=== PATIENT | female | born 1985 | race Caucasian/White ===

== ENCOUNTER 2023-04-24 03:29 | Emergency (ER) | payer MEDICAID, SELFPAY ==
[2023-04-24 03:37] VITALS: BMI 20.3
[2023-04-24 03:41] VITALS: BP 147/114; PULSE 112; RESP 16; TEMP 37.2; O2SAT 95
--- NOTE | 2023-04-24 04:17 | CTR_ITS ---
PROCEDURE INFORMATION: Exam: CT Head Without Contrast Exam date and time: 04/24/2023 4:40 AM Age: 38 years old Clinical indication: Altered mental status/memory loss; Confusion or disorientation; Patient HX: Facial droop, PT states she had a previous stroke. Very agitated. Unable to remain still during scan; Additional info: AMS TECHNIQUE: Imaging protocol: Computed tomography of the head without contrast. Radiation optimization: All CT scans at this facility use at least one of these dose optimization techniques: automated exposure control; mA and/or kV adjustment per patient size (includes targeted exams where dose is matched to clinical indication); or iterative reconstruction. REPORTING DATA: Count of CT and Cardiac NM exams in prior 12 months: This patient has received 0 known CTs and 0 known cardiac nuclear medicine studies in the 12 months prior to the current study. COMPARISON: No relevant prior studies available. RADIATION DOSE METRICS: Total DLP (mGy-cm): 1143.6 FINDINGS: Brain: No focal hemorrhage or midline shift is identified. Cerebral ventricles: No ventriculomegaly or evidence of acute hydrocephalus. Paranasal sinuses: Minimal left lower maxillary sinus mucosal thickening. Mastoid air cells: Visualized mastoid air cells are well aerated. Bones/joints: No displaced skull fracture is noted. Soft tissues: Unremarkable. CT/CT head wo con* [id number] IMPRESSION: No acute intracranial abnormality.
--- NOTE | 2023-04-24 04:20 | ED_ITS ---
HPI - Anxiety General: Chief Complaint: Anxiety Stated Complaint: weakness Source: patient History of Present Illness: 38-year-old female who is unknown to our service. She states that she has lived in [facility] for the last 21 years. She has been doing a lot of walking this morning she claims. She believes that sometime yesterday or the day before, she may have had a stroke . She states that the right side of her face does not feel quite right, that she is having trouble with swallowing, etc. she is difficult to follow on interview. She speaks about demons , evil people , witches possessing me , etc. she also states people that where the COVID masks are [facility]AMAN complaint: anxiety and other Onset (ago): day(s) Symptoms: other Severity: moderate Quality: constant Place: other History of similar episodes: Yes Provoking factors: other Relieving factors: other Exacerbating factors: other Associated symptoms: Reports confusion and weakness (of right face); Deny chest pain, chills, diaphoresis, fever(s), headache(s), palpitations or vomiting Review of Systems General: Reports: Other (she is and unreliable historian to some degree) Const: Denies: fever(s), chills or diaphoresis Card: Denies: chest pain or palpitations GI: Denies: vomiting Neuro: Reports: confusion; Denies: headache(s) Physical Exam Const: GENERAL APPEARANCE: cooperative, well kempt and well developed; not ill appearing and not frail appearing ORIENTATION/CONSCIOUSNESS: Yes awake, Yes oriented to person and Yes oriented to place; not oriented to time HENMT: COMMON NORMALS: normocephalic, atraumatic and Normal external nose present HEAD & SCALP: normocephalic and atraumatic FACE & SINUS: face not symmetric NOSE: Normal external nose present and Normal nares present Eye: COMMON NORMALS: Equal, round and reactive pupils present and EOMs intact bilaterally PUPIL: Yes Equal, round and reactive pupils present Neck/C-Spine: GENERAL: Yes trachea midline Chest: CHEST: Yes Symmetrical chest wall rise Resp: COMMON NORMALS: normal respiratory effort, No use of accessory muscles and clear to auscultation bilaterally AUSCULTATION: clear to auscultation bilaterally Cardio: COMMON NORMALS: regular rate and regular rhythm RATE: regular rate RHYTHM: regular rhythm GI: COMMON NORMALS: Normal to inspection, nondistended, normoactive bowel sounds present Extremity: COMMON NORMALS: no pedal edema Neuro: EVELYN COMA SCALE: document GCS findings Evelyn coma scale eye opening: Spontaneous Evelyn coma scale verbal response: Orientated [place] coma scale motor response: Obey commands Evelyn coma scale total score: 15 SENSORIUM/ORIENTATION: Yes oriented to person, Yes oriented to place and No oriented to time CRANIAL NERVES: Yes CN VII (facial) Laterality: right CN VII findings: facial droop GAIT: Yes Normal gait present MOTOR EXAM: Pronator motor function not present Psych: COMMON NORMALS: cooperative APPEARANCE: Yes well kempt ATTITUDE: Yes engaged ACTIVITY/MOTOR BEHAVIOR: Yes appropriate eye contact and Yes psychomotor agitation SPEECH: Yes rapid and Yes Pressured speech present MOOD & AFFECT: Yes elevated mood THOUGHT PROCESS: disorganized and Tangential thought process present THOUGHT CONTENT: No Suicidality present, No Homicidality present and Yes delusions ATTENTION/CONCENTRATION: Yes attention grossly intact and Yes concentration grossly intact MEMORY/COGNITION: Yes memory grossly intact and Yes cognition grossly intact INSIGHT: Limited insight present (Psych) JUDGEMENT: Fair judgement present (Psych) Skin: COMMON NORMALS: no rashes or lesions noted GENERAL SKIN EXAM: no rashes or lesions noted Course Vital Signs: Vital signs: Vital Signs Temperature 98.9 F 04/24/23 03:41 Pulse Rate 112 H 04/24/23 03:41 Respiratory Rate 16 04/24/23 03:41 Blood Pressure 147/114 04/24/23 03:41 Pulse Oximetry 95 04/24/23 03:41 Oxygen Delivery Me thod Room Air 04/24/23 03:41 MDM - Anxiety Medical Decision Making Patient appears floridly psychotic on exam. She is hypertensive. She does have a dense facial droop on the right side. There are no other neurological findings to suggest ischemia. 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 CT of the head is pending. Work-up for altered mental status otherwise. She is given IV Haldol and Ativan with good effect. Urine drug screen appears positive for amphetamines, which could be a source of psychosis, although I suspect there is baseline mental illness as well. Despite IV Haldol and Ativan, the patient was still up and about in the room. She has had 2 sandwiches, and water. She is speaking a bit more appropriately. A sober appearing adult came to see her. The patient wishes to leave. It was e xplained to her, that leaving before completion of her evaluation could result in an increased risk of worsening symptoms and/or . She understands this. She is more oriented at this point. She is not homicidal or suicidal she will be allowed to go AMA. Lab Data 04/24/23 04:19 Laboratory Results WBC 7.6 10^3/uL (4.0-10.0) 04/24/23 04:19 RBC 4.25 10^6/uL (4.1-5.3) 04/24/23 04:19 Hgb 11.6 g/dL (11.5-15.3) 04/24/23 04:19 Hct 36.5 % (37.0-47.0) L 04/24/23 04:19 MCV 85.9 fl (81-99) 04/24/23 04:19 MCH 27.3 pg (28.0-34.0) L 04/24/23 04:19 MCHC 31.8 g/dL (30.0-36.0) 04/24/23 04:19 RDW 14.5 % (12.1-15.1) 04/24/23 04:19 Plt Count 673 10^3/cmm (130-400) H 04/24/23 04:19 MPV 9.8 fL (7.4-10.4) 04/24/23 04:19 Neut % (Auto) 64.2 % 04/24/23 04:19 Lymph % (Auto) 23.8 % 04/24/23 04:19 [place] % (Auto) 10.1 % 04/24/23 04:19 Eos % (Auto) 1.3 % 04/24/23 04:19 Baso % (Auto) 0.5 % 04/24/23 04:19 Neut # (Auto) 4.85 10^3/uL (1.8-7.7) 04/24/23 04:19 Lymph # (Auto) 1.8 10^3/uL (0.8-4.8) 04/24/23 04:19 [place] # (Auto) 0.8 10^3/uL (0.2-0.9) 04/24/23 04:19 Eos # (Auto) 0.1 10^3/uL (0.0-0.8) 04/24/23 04:19 Baso # (Auto) 0.0 10^3/uL (0.0-0.1) 04/24/23 04:19 Nucleated RBC % (auto) 0 % 04/24/23 04:19 Nucleated RBCs # 0.0 /100WBC 04/24/23 04:19 HCG, Qual Negative (Negative) 04/24/23 04:19 Urine Color Yellow (Yellow) 04/24/23 04:27 Urine Appearance Clear (CLEAR) 04/24/23 04:27 Urine pH 6.5 (5-7) 04/24/23 04:27 Ur Specific [place] 1.020 (1.005-1.030) 04/24/23 04:27 Urine Protein Trace (Negative) 04/24/23 04:27 Urine Glucose (UA) Norm (Normal) 04/24/23 04:27 Urine Ketones 1+ (Negative) H 04/24/23 04:27 Urine Blood 2+ (Negative) H 04/24/23 04:27 Urine Nitrate Negative (Negative) 04/24/23 04:27 Urine Bilirubin 1+ (Negative) H 04/24/23 04:27 Urine Urobilinogen Norm mg/dL (Negative) 04/24/23 04:27 Ur Leukocyte Esterase 2+ (Negative) H 04/24/23 04:27 Urine RBC 5-10 /hpf (0-2) H 04/24/23 04:27 Urine WBC 25-40 /hpf (0-5) H 04/24/23 04:27 Ur Squamous Epith Cells 5-10 /hpf (0-5) H 04/24/23 04:27 Amorphous Sediment Not Reportable 04/24/23 04:27 Urine Bacteria 2+ /hpf (NONE) H 04/24/23 04:27 Urine Mucus 1+ /hpf 04/24/23 04:27 Urine Opiates Screen Negative ng/mL (Negative) 04/24/23 04:27 Ur Barbiturates Screen Negative ng/mL (Negative) 04/24/23 04:27 Ur Phencyclidine Scrn Negative ng/mL (Negative) 04/24/23 04:27 Ur Amphetamines Screen Positive ng/mL (Negative) H 04/24/23 04:27 U Benzodiazepines Scrn Positive ng/mL (Negative) H 04/24/23 04:27 Urine Cocaine Screen Negative ng/mL (Negative) 04/24/23 04:27 U Marijuana (THC) Screen Negative ng/mL (Negative) 04/24/23 04:27 Discharge Plan Discharge Patient Disposition: Left Against Medical Advice Clinical Impression: Acute anxiety, Amphetamine abuse, Substance-induced psychotic disorder Condition: Stable Coding Level of Care Code ED Machine Sign Writer for Gail Connors
[2023-04-24 04:26] LABS: Basophils % 0.5 %; Eosinophils # 0.1 10^3/uL (0.0-0.8); Eosinophils % 1.3 %; Hematocrit 36.5 % (37.0-47.0); Hemoglobin 11.6 g/dL (11.5-15.3); Lymphocytes # 1.8 10^3/uL (0.8-4.8); Lymphocytes % 23.8 %; Mean Corpuscular HGB Conc 31.8 g/dL (30.0-36.0); Mean Corpuscular Hemoglobin 27.3 pg (28.0-34.0); Mean Corpuscular Volume 85.9 fl (81-99); Mean Platelet Volume 9.8 fL (7.4-10.4); Monocytes # 0.8 10^3/uL (0.2-0.9); Monocytes % 10.1 %; Neutrophils # 4.85 10^3/uL (1.8-7.7); Neutrophils % 64.2 %; Nucleated Red Blood Cells % 0 %; Platelet Count 673 10^3/cmm (130-400); Red Blood Count 4.25 10^6/uL (4.1-5.3); Red Cell Distribution Width 14.5 % (12.1-15.1); White Blood Count 7.6 10^3/uL (4.0-10.0)
[2023-04-24 04:41] LABS: HCG Qualitative Urine. Negative (Negative)
[2023-04-24] MEDS: LORazepam 2 mg/mL INJ 1 mL IVP (04:46)
[2023-04-24] MEDS: haloperidol inj 5 mg/mL INJ 1 mL IVP (04:47)
[2023-04-24 04:49] LABS: Amphetamines Screen Urine Positive (Negative); Barbiturates Screen Urine Negative (Negative); Benzodiazepines Screen Urine Positive (Negative); Cocaine Screen Urine Negative (Negative); Opiate Screen Urine Negative (Negative); PCP Screen Urine Negative (Negative); THC Screen Urine Negative (Negative)
[2023-04-24 05:01] LABS: Bilirubin Urine 1+ (Negative); Blood Urine 2+ (Negative); Glucose Urine UA Norm (Normal); Ketones Urine 1+ (Negative); Nitrate Urine Negative (Negative); Protein Urine Trace (Negative); Urine Appearance Clear (CLEAR); Urine Color Yellow (Yellow); pH Urine 6.5 (5-7)
[2023-04-24 05:02] LABS: Add Urine Microscopic? YES; Leukocyte Esterase Urine 2+ (Negative); Urobilinogen Urine Norm (Negative)
[2023-04-24 05:03] LABS: WBC Urine 25-40 /hpf (0-5)
[2023-04-24 05:04] LABS: Bacteria Urine 2+ /hpf; Mucus Urine 1+ /hpf
[2023-04-24 05:05] LABS: Add Urine Culture? Yes
== END 2023-04-24 05:21 | disposition left against medical advice (07) ==
PROVIDERS: Emergency Provider Emergency Medicine
DX: F41.9 Anxiety disorder, unspecified (principal); F15.159 Other stimulant abuse with stimulant-induced psychotic disorder, unspecified
CPT/HCPCS: 70450; 80306; 81001; 81025; 85025; 87086; 96374; 96375; 99284; J1630; J2060

== ENCOUNTER 2023-04-24 06:29 | Inpatient (IN) | payer MEDICAID, SELFPAY ==
[2023-04-24 06:37] VITALS: BP 89/49; PULSE 87; RESP 16; TEMP 36.7; O2SAT 94
[2023-04-24 06:38] VITALS: BMI 21.4
[2023-04-24 06:40] VITALS: BP 110/64
--- NOTE | 2023-04-24 07:05 | PC.NURSE ---
Pt resting quietly in her room, pt in paper scrubs, sitter outside of room.
--- NOTE | 2023-04-24 07:17 | ED.C_ITS ---
HPI - Psych General: Chief Complaint: Psychiatric Symptoms Stated Complaint: SI Time Seen by Provider: 04/24/23 06:37 Source: patient Mode of arrival: ambulatory History of Present Illness: 38-year-old female presents emergency room complaining of suicidal ideation and thoughts. She was here earlier denied being suicidal. She is originally from out of town in [place] she has been staying here in town she tells me she is homeless she has some friends and relatives in town but is not been able to stay with them. She denies having done anything to harm herself. When she was here earlier she received Ativan and Haldol she is very sedate at this time. When she was earlier she tested positive for methamphetamines and marijuana MD complaint: suicidal ideation and feels depressed Onset (ago): unknown Duration: constant History of same: Yes Relieving factors: none Exacerbating factors: none Context: recent drug abuse Associated psychiatric symptoms: none Associated symptoms: Reports depression and suicidal ideation Treatments prior to arrival: none If self harm: admits thoughts of self harm and has plan Review of Systems Const: Denies: fever(s) or chills ENMT: Denies: throat pain, ear or mastoid pain, nasal discharge or nasal congestion Card: Denies: chest pain, edema, dyspnea on exertion or orthopnea Resp: Denies: dyspnea, productive cough or non-productive cough GI: Denies: abdominal pain, nausea or vomiting : Denies: dysuria, urinary frequency or urinary urgency Skin/Breast: Denies: rash or pruritus Psych: Reports: depression and suicidal ideation Physical Exam 2 Const: GENERAL APPEARANCE: cooperative and comfortable ORIENTATION/CONSCIOUSNESS: Yes awake, Yes oriented to person, Yes oriented to place and Yes oriented to time HENMT: COMMON NORMALS: normocephalic, atraumatic and hearing grossly normal bilaterally HEAD & SCALP: normocephalic and atraumatic Resp: COMMON NORMALS: normal respiratory effort, No retractions, No use of accessory muscles and clear to auscultation bilaterally AUSCULTATION: clear to auscultation bilaterally Cardio: COMMON NORMALS: regular rate, regular rhythm and No murmurs present (Cardio) RATE: regular rate RHYTHM: regular rhythm GI: COMMON NORMALS: Soft to palpation and No hepatosplenomegaly present AUSCULTATION: Yes normoactive bowel sounds PALPATION: Yes Soft to palpation, No Tenderness to palpation present (GI), No Guarding due to palpation present (GI) and Yes No hepatosplenomegaly present Extremity: COMMON NORMALS: normal to inspection, capillary refill normal, no clubbing, cyanosis or edema, no calf tenderness and no pedal edema Neuro: SENSORIUM/ORIENTATION: Yes oriented to person, Yes oriented to place and Yes oriented to time Skin: COMMON NORMALS: no rashes or lesions noted GENERAL SKIN EXAM: no rashes or lesions noted Course Vital Signs: Vital signs: Vital Signs Temperature 98.0 F 04/24/23 09:18 Pulse Rate 80 04/24/23 09:18 Respiratory Rate 16 04/24/23 06:37 Blood Pressure 99/66 04/24/23 09:18 Pulse Oximetry 98 04/24/23 09:18 Oxygen Delivery Me thod Room Air 04/24/23 09:18 [facility] - Psych Medical Decision Making Patient expressing suicidal ideation with the plan. Her plan is for an of a train to kill herself. She has not done anything to advance lethality at this point she is very sedate discussed Dr. Atkins will except on admission. Orders written Labs reviewed from earlier today. Medical Records I reviewed the patient's medical records. Lab Data I reviewed the patient's lab results. Discharge Plan Discharge Patient Disposition: Admitted As Inpatient Admit Provider: Rich Atkins Clinical Impression: Suicidal ideation, Amphetamine abuse, Substance-induced psychotic disorder Condition: Stable Coding Level of Care Code ED Director Media for Gail Connors
[2023-04-24 08:17] VITALS: BP 100/62; PULSE 80; O2SAT 96
[2023-04-24 09:18] VITALS: BP 99/66; PULSE 80; TEMP 36.7; O2SAT 98
--- NOTE | 2023-04-24 10:22 | PC.OT ---
OT EVALUATION HELD PER NURSING REQUEST.
--- NOTE | 2023-04-24 11:57 | W.PM.NPUH&PS ---
Providers/Chief Complaint Admitting Physician: Rich Atkins MD Chief Complaint: SI HPI NPU History of Present Illness Nishi Purvis is a 38 year old female who presented to the emergency department with the following report: Chief Complaint: Anxiety Stated Complaint: weakness Source: patient History of Present Illness: 38-year-old female who is unknown to our service. She states that she has lived in [facility] for the last 21 years. She has been doing a lot of walking this morning she claims. She believes that sometime yesterday or the day before, she may have had a stroke . She states that the right side of her face does not feel quite right, that she is having trouble with swallowing, etc. she is difficult to follow on interview. She speaks about demons , evil people , witches possessing me , etc. she also states people that where the COVID masks are [employer] [facility]AMAN complaint: anxiety and other Onset (ago): day(s) Symptoms: other Severity: moderate Quality: constant Place: other History of similar episodes: Yes Provoking factors: other Relieving factors: other Exacerbating factors: other Associated symptoms: Reports confusion and weakness (of right face); Deny chest pain, chills, diaphoresis, fever(s), headache(s), palpitations or vomiting. She was discharged from the emergency department but returned very quickly thereafter with strange reports and endorsing suicidality. She was admitted to the neuropsychiatric unit for definitive treatment of these issues. Multiple attempts were made to engage patient without success. On the last occasion this evening this commercial lines underwriter offered her an opportunity to go outside at a picnic table for privacy to discuss the circumstances of her admission and she declined. I then attempted to enter the room and engage her there. She further isolated herself by putting her blanket up over her head and reported that she was having a horrible headache/migraine and was unable to talk and answer questions with any consistency or effectiveness. Spoke with the charge nurse who reported that earlier shift nursing had attempted to engage her and do her assessments without success and thus far on her shift she has been met with the same resistance and unwillingness to answer questions. Return to patient #without success but discussed and need for us to attempt these questions in the morning as she refused the further engagement. From all that can be identified patient has no other intersection with this hospital system. Unless she has records under another name or account the only other information found in the chart was a crisis call that to place 04/20/2023 which likely led to her coming to the hospital eventually as she called in distress and was given options by the crisis line to assist her in her emotional crisis. Meds NPU Allergies Allergy/AdvReac Type Severity Reaction Status Date / Time No Known Allergies Allergy Verified 04/24/23 09:13 Mental Status Exam MSE Comments: This is a well-nourished well-developed white female in hospital scrubs with limited grooming and mostly nonexistent eye contact. No abnormal movements except for significant psychomotor retardation. Uncooperative with exam in mild to moderate distress. Speech was mostly absent and decreased rate and volume. Mood not described affect tired and possibly irritable. Thought process appeared linear. Thought content: Patient did not respond to questions about suicidal or homicidal ideation though she had reported suicidality in her second emergency room engagement in the last 24 hours. He did not report any delusional content but she appeared quite guarded and had reports of delusional thinking in the emergency department, and she did not appear to be attending to internal stimuli here but with very limited engagement. Attention and concentration were limited versus impaired and memory was unreliable but not were formally tested. She was alert and oriented to self. Insight, judgment and impulse control all appeared impaired. Vitals/I&O/Wt Last Vital Signs Temp 98.0 F 04/24/23 09:18 Pulse 80 04/24/23 09:18 Resp 16 04/24/23 06:37 BP 99/66 04/24/23 09:18 Pulse Ox 98 04/24/23 09:18 O2 Del Method Room Air 04/24/23 09:18 Weight last 48 hrs Weight 58.967 kg Weight 56.699 kg A&P Assessment and plan (1) Acute anxiety: (2) Amphetamine abuse: (3) Substance-induced psychotic disorder: (4) Suicidal ideation: (5) Psychosis: Plan This is a 38-year-old white female who presented to the emergency department with significant psychosis and UDS positive for amphetamines and benzodiazepines but the benzodiazepines may have been from the emergency room administration currently uncooperative with examination and possibly lethargic from methamphetamine withdrawal. 1. Continue current medication. We will attempt to understand treatment history and hopeful to initiate an antipsychotic. 2. Continue every 15 minute checks for safety. 3. Encourage individual, group and milieu therapy. 4. Encourage sober living treatment after discharge at the highest level of care to which she is willing to commit. Attestations NPU Medical Necessity Statement*: Inpatient hospitalization is medically necessary and the clinically appropriate intervention at this time. We will monitor medications and make changes as indicated. She will be in the hospital for over 2 midnights. Likely length of stay 5 to 7 days. Coding Level of Care Code Acute Code for [facility] Fwd Diagnoses Acute anxiety F41.9 Amphetamine abuse F15.10 Substance-induced psychotic disorder F19.959 Suicidal ideation R45.851 Psychosis F29
[2023-04-24] MEDS: sulfamethoxazole-trimeth DS 160-800 mg Tablet 1 TAB PO (12:20)
--- NOTE | 2023-04-24 12:21 | PC.NURSE ---
Patient's Bactrim administered late due to her not being able to stay awake long enough to swallow her medication.
--- NOTE | 2023-04-24 18:39 | PC.NURSE ---
Unable to complete patient's assessment because she is under the influence and can not answer appropriately or stay awake. When asked where patient lived she replied, in the dorms. When asked if they were in [place] she answered, no, no, no. Right in here, and motioned to the floor of the hospital. When this RN asked if she could read and write patient blurted out that she really liked baseball. This RN also tried to obtain which pharmacy the patient used but she replied, [facility].
[2023-04-25 06:00] VITALS: BP 100/63; PULSE 89; RESP 16; TEMP 36.8; O2SAT 99
--- NOTE | 2023-04-25 12:33 | PC.NURSE ---
PT WAS REQUESTED TO SIGN HOSPITAL CONSENT DOCUMENTS. PT PLACED A SQUIGGLE ON EACH LINE. THAT WAS WITNESSED BY THIS NURSE.
--- NOTE | 2023-04-25 13:00 | PC.NURSE ---
PT WAS YELLING AT ANOTHER PT. PT BECAME IRRITATED WITH ROOMMATE AFTER ROOMMATE POINTED OUT THAT SHE HAD FACIAL DROOPING. PT'S ROOMMATE WAS UNWILLING TO BE REDIRECTED AND THEY WERE IN EACH OTHERS FACE SCREAMING. PT WAS REMOVED FROM EACH OTHER AND ANOTHER ROOM WAS BEING FOUND FOR THIS PT. WHILE THIS PT WAS IN THE HALLWAY ANOTHER PT STATED TO THIS PT YOU ARE JUST MAKING THEIR JOBS HARDER. PT THEN BECAME AGITATED AGAIN AND BEGAN SCREAMING AT THIS OTHER PT. FUCK YOU , LEAVE ME THE FUCK ALONE. JUST FUCK YOU. THE OTHER PT DID NOT RESPOND AND THIS PT WAS PROMPTLY MOVED TO A PRIVATE ROOM AND AWAY FROM OTHER PTS.
[2023-04-25 14:00] VITALS: BP 93/55; PULSE 79; RESP 16; TEMP 36.6; O2SAT 98
--- NOTE | 2023-04-25 14:32 | W.PM.NPUPNS ---
Subjective NPU Subjective: Patient presented today continuing to be quite guarded and paranoid per staff reports. She ended up in a shouting match with a patient that has tended to be triggering to other patients. Otherwise she was fairly contentious in the interview being concerned about the purpose of the questions. Questions as simple as what brought you to the hospital. This was met with I do not understand the purpose of this question. Mental Status Exam MSE Comments: This is a well-nourished well-developed white female in hospital scrubs with limited grooming and mostly nonexistent eye contact. No abnormal movements except for significant psychomotor retardation. Uncooperative with exam in mild to moderate distress. Speech was mostly absent and decreased rate and volume. Mood not described affect tired and possibly irritable. Thought process appeared linear. Thought content: Patient did not respond to questions about suicidal or homicidal ideation though she had reported suicidality in her second emergency room engagement in the last 24 hours. She did not report any delusional content but she appeared quite guarded and had reports of delusional thinking in the emergency department, and she did not appear to be attending to internal stimuli here but with very limited engagement. Attention and concentration were limited versus impaired and memory was unreliable but not were formally tested. She was alert and oriented to self. Insight, judgment and impulse control all appeared impaired. Vitals/I&O/Wt Last Vital Signs Temp 98 F 04/25/23 14:00 Pulse 95 04/25/23 22:00 Resp 18 04/25/23 22:00 BP 108/75 04/25/23 22:00 Pulse Ox 98 04/25/23 22:00 O2 Del Method Room Air 04/25/23 22:00 Weight last 48 hrs Weight 58.967 kg Weight 56.699 kg A&P Assessment and plan (1) Acute anxiety: (2) Amphetamine abuse: (3) Substance-induced psychotic disorder: (4) Suicidal ideation: (5) Psychosis: Plan This is a 38-year-old white female who presented to the emergency department with significant psychosis and UDS positive for amphetamines and benzodiazepines but the benzodiazepines may have been from the emergency room administration currently uncooperative with examination and possibly lethargic from methamphetamine withdrawal. 1. Continue current medication. We will attempt to understand treatment history and hopeful to initiate an antipsychotic. 2. Continue every 15 minute checks for safety. 3. Encourage individual, group and milieu therapy. 4. Encourage sober living treatment after discharge at the highest level of care to which she is willing to commit. Involuntary Hold Information 96 Hour Hold: 96 Hour Involuntary Admission: No Attestations NPU Medical Necessity Statement*: Inpatient hospitalization is medically necessary and the clinically appropriate intervention at this time. We will monitor medications and make changes as indicated. Likely length of stay 5 to 7 days. Coding Level of Care Code Acute Code for [facility] Fwd Diagnoses Acute anxiety F41.9 Amphetamine abuse F15.10 Substance-induced psychotic disorder F19.959 Suicidal ideation R45.851 Psychosis F29
[2023-04-25] MEDS: sulfamethoxazole-trimeth DS 160-800 mg Tablet 1 TAB PO (19:54)
[2023-04-25 22:00] VITALS: BP 108/75; PULSE 95; RESP 18; O2SAT 98
[2023-04-26 06:00] VITALS: RESP 15
[2023-04-26] MEDS: hyDROXYzine 25 mg Capsule 50 MG PO (08:01)
[2023-04-26] MEDS: sulfamethoxazole-trimeth DS 160-800 mg Tablet 1 TAB PO (08:01)
[2023-04-26 13:59] VITALS: BP 85/53; PULSE 91; RESP 18; TEMP 36.9; O2SAT 98
--- NOTE | 2023-04-26 18:24 | W.PM.NPUPNS ---
Subjective NPU Subjective: Patient presented today for the first time having any kind of sensible conversation with this typewriters functional tester. She still was quite guarded and irritable but Kelsie was able to seem to acknowledge that addiction and specifically methamphetamine likely played a role in her admission. She continued to be guarded and paranoid per staff but remained resistant to the idea of the medication, specifically an antipsychotic to help with her symptoms. Mental Status Exam MSE Comments: This is a well-nourished well-developed white female in hospital scrubs with limited grooming and eye contact. No abnormal movements except for psychomotor retardation. Slightly more cooperative with exam in mild to moderate distress. Speech was mostly absent and decreased rate and volume. Mood not described affect tired and irritable. Thought process appeared linear. Thought content: Patient did not respond to questions about suicidal or homicidal ideation though she had reported suicidality in her second emergency room engagement in the last 24 hours. She did not report any delusional content but she appeared quite guarded and had reports of delusional thinking in the emergency department, and she did not appear to be attending to internal stimuli here but with very limited engagement. Attention and concentration were limited versus impaired and memory was unreliable but not were formally tested. She was alert and oriented to self. Insight, judgment and impulse control all appeared impaired. Vitals/I&O/Wt Last Vital Signs Temp 98.4 F 04/26/23 13:59 Pulse 91 04/26/23 13:59 Resp 18 04/26/23 13:59 BP 85/53 04/26/23 13:59 Pulse Ox 98 04/26/23 13:59 O2 Del Method Room Air 04/26/23 13:59 A&P Assessment and plan (1) Acute anxiety: (2) Amphetamine abuse: (3) Substance-induced psychotic disorder: (4) Suicidal ideation: (5) Psychosis: Plan This is a 38-year-old white female who presented to the emergency department with significant psychosis and UDS positive for amphetamines and benzodiazepines but the benzodiazepines may have been from the emergency room administration currently uncooperative with examination and possibly lethargic from methamphetamine withdrawal. 1. Continue current medication. We will attempt to understand treatment history and hopeful to initiate an antipsychotic. 2. Continue every 15 minute checks for safety. 3. Encourage individual, group and milieu therapy. 4. Encourage sober living treatment after discharge at the highest level of care to which she is willing to commit. Involuntary Hold Information 96 Hour Hold: 96 Hour Involuntary Admission: No Attestations NPU Medical Necessity Statement*: Inpatient hospitalization is medically necessary and the clinically appropriate intervention at this time. We will monitor medications and make changes as indicated. Likely length of stay 3-6 days. Coding Level of Care Code Acute Code for Chg Fwd Diagnoses Acute anxiety F41.9 Amphetamine abuse F15.10 Substance-induced psychotic disorder F19.959 Suicidal ideation R45.851 Psychosis F29
--- NOTE | 2023-04-26 19:45 | PC.NURSE ---
Pt refused scheduled 2100 antibiotic, Pt stated I cant take that right now because I am sleeping.
[2023-04-26 21:23] VITALS: RESP 12
[2023-04-27 06:00] VITALS: BP 96/58; PULSE 77; RESP 18; TEMP 36.6; O2SAT 97
[2023-04-27] MEDS: hyDROXYzine 25 mg Capsule 50 MG PO (08:39)
[2023-04-27] MEDS: nicotine 2 mg Gum BUCCAL ×3 (08:39→13:51)
[2023-04-27] MEDS: sulfamethoxazole-trimeth DS 160-800 mg Tablet 1 TAB PO (08:39)
[2023-04-27] MEDS: OLANZapine 5 mg ODT PO (10:03)
[2023-04-27] MEDS: ibuprofen 600 mg Tablet PO (10:04)
--- NOTE | 2023-04-27 13:19 | W.PM.NPUDCS ---
Diagnoses at Discharge Discharge Diagnosis (1) Acute anxiety: Status: Inactive (2) Amphetamine abuse: Status: Acute (3) Substance-induced psychotic disorder: Status: Acute (4) Suicidal ideation: Status: Resolved (5) Psychosis: Status: Acute Reason for Visit Reason for Visit: SI Brief History: History of Present Illness Nishi Purvis is a 38 year old female who presented to the emergency department with the following report: Chief Complaint: Anxiety Stated Complaint: weakness Source: patient History of Present Illness:?? 38-year-old female who is unknown to our service.? She states that she has lived in [facility] for the last 21 years.? She has been doing a lot of walking this morning she claims.? She believes that sometime yesterday or the day before, she may have had a stroke .? She states that the right side of her face does not feel quite right, that she is having trouble with swallowing, etc. she is difficult to follow on interview.? She speaks about demons , evil people , witches possessing me , etc. she also states people that where the COVID masks are [employer] ? complaint: anxiety and other Onset (ago): day(s) Symptoms: other Severity: moderate Quality: constant Place: other History of similar episodes: Yes Provoking factors: other Relieving factors: other Exacerbating factors: other Associated symptoms: Reports confusion and weakness (of right face); Deny chest pain, chills, diaphoresis, fever(s), headache(s), palpitations or vomiting. She was discharged from the emergency department but returned very quickly thereafter with strange reports and endorsing suicidality.? She was admitted to the neuropsychiatric unit for definitive treatment of these issues.? Multiple attempts were made to engage patient without success.? On the last occasion this evening this speech writer offered her an opportunity to go outside at a picnic table for privacy to discuss the circumstances of her admission and she declined.? I then attempted to enter the room and engage her there.? She further isolated herself by putting her blanket up over her head and reported that she was having a horrible headache/migraine and was unable to talk and answer questions with any consistency or effectiveness.? Spoke with the charge nurse who reported that earlier shift nursing had attempted to engage her and do her assessments without success and thus far on her shift she has been met with the same resistance and unwillingness to answer questions.? Return to patient #without success but discussed and need for us to attempt these questions in the morning as she refused the further engagement.? From all that can be identified patient has no other intersection with this hospital system.? Unless she has records under another name or account the only other information found in the chart was a crisis call that to place 04/20/2023 which likely led to her coming to the hospital eventually as she called in distress and was given options by the crisis line to assist her in her emotional crisis. Hospital Course Hospital Course She slowly acclimated to the individual, group and milieu therapies. She was initially quite resistant to treatment engagement overall. She was clearly crashing from amphetamine use. Eventually she was able to agree to accept to milligrams p.o. nightly. She was able to work with the social work on sober living treatment as well as other aftercare. She had significant problem and was able to contract for safety outside the hospital prior to discharge. During the hospitalization, patient had routine laboratory studies which were within normal limits except for few outliers. Additionally there was a general medical evaluation which was also within normal limits and revealed no new acute processes. At the time of discharge, she denied psychosis or lethality. Mood and anxiety were well managed. Patient endorsed a plan to avoid all drugs of abuse and follow-up with the aftercare recommendations of the treatment team. Patient was evaluated and deemed to be absent credible lethality, and had achieved the maximum benefit from an inpatient hospitalization, so was discharged. Involuntary Hold Information 96 Hour Hold: 96 Hour Involuntary Admission: No Mental Status Exam MSE Comments: This is a well-nourished well-developed white female in hospital scrubs with limited grooming and eye contact. No abnormal movements except for psychomotor retardation. Slightly more cooperative with exam in mild distress. Speech was more spontaneous and more normal rate and volume. Mood a little better, affect less tired. Thought process appeared linear. Thought content: Patient denied suicidal or homicidal ideation, she did not report any delusional content and was less guarded, and she did not appear to be attending to internal stimuli. Attention and concentration were improving and memory was poor reliable but not were formally tested. She was alert and oriented x3. Insight, judgment and impulse control all appeared improving. Discharge Data Vitals: Last Vital Signs Temp 97.9 F 04/27/23 06:00 Pulse 77 04/27/23 06:00 Resp 18 04/27/23 06:00 BP 96/58 04/27/23 06:00 Pulse Ox 97 04/27/23 06:00 O2 Del Method Room Air 04/27/23 06:00 Discharge Plan Discharge Patient Disposition: Home Condition: Stable Prescriptions: New Zyprexa 10 mg tablet 10 mg PO DAILY 30 Days Qty: 30 1RF Continued trazodone 50 mg tablet 50 mg PO BEDTIME 30 Days Qty: 30 1RF benztropine 1 mg tablet 1 mg PO DIRECTED 30 Days Qty: 30 1RF Discontinued mirtazapine [Remeron] 15 mg tablet 15 mg PO BEDTIME olanzapine [Zyprexa Zydis] 10 mg tablet,disintegrating 10 mg PO DIRECTED atomoxetine [Strattera] 40 mg capsule 40 mg PO DIRECTED bupropion HCl [Wellbutrin XL] 150 mg tablet extended release 24 hr 150 mg PO DAILY lurasidone [Latuda] 80 mg tablet 80 mg PO DIRECTED Discharge Orders: Discharge Order (Routine); Ordered 04/27/23 Ordered By: Rich Atkins Referrals: [facility] [Other] (Call [place] with number listed for any insurance questions. ) [facility] [Other] - 1-3 days (You can go to [email or web address] for psychiatry and therapy needs.) Angela Initial intake [Other] - 05/16/23 1:30 pm (Arrive at 1:30pm for paperwork[facility] Dr [place] [Other] - 06/12/23 12:20 pm (Face to face with Dr Kwon) Discharge Diet: Regular Discharge Activity: Resume usual activity Patient Instructions: Depression (DC), Suicide Prevention (DC), Opioid Safety Discharge Attestations NPU Time Spent in Discharge Care*: less than 30 min Specific Discharge Activities: Specific discharge activities: educating patient, discussing with casework manager/social workers/dc planners, documenting/other paperwork and evaluating patient/reviewing data Coding Level of Care Code Acute Chg FW DC note Diagnoses Acute anxiety F41.9 Amphetamine abuse F15.10 Substance-induced psychotic disorder F19.959 Suicidal ideation R45.851 Psychosis F29
[2023-04-27 13:37] VITALS: BP 96/58; PULSE 77; RESP 18; TEMP 36.6; O2SAT 97
--- NOTE | 2023-04-27 14:57 | PC.NURSE ---
written discharge instruction discussed and left with patient. pt stated understanding and compliance. pt medications delivered from [facility] pharmacy. car tender will be picking up patient to provide transportation home.
== END 2023-04-27 15:30 | disposition home or self-care (01) | DRG 897 ==
LOC: ER 07:18 → NP 08:19
PROVIDERS: Admitting Provider Psychiatry & Neurology Psychiatry; Emergency Provider Family Medicine; Visit Provider Psychiatry & Neurology Psychiatry
DX: F15.159 Other stimulant abuse with stimulant-induced psychotic disorder, unspecified (principal)
CPT/HCPCS: 97165; 99238; 99285